=== PATIENT | male | born 1960 | race Caucasian/White ===

== ENCOUNTER → 2017-02-15 | Outpatient (CLI) | payer OTHER ==
[~2017-02-15] MED LIST: CYCL-259 PO; EMTR1TAB12 PO; GABA-826 PO; MELO-184 PO; METH750T87 PO; OMEP40CA6 PO; OXYC-96 PO; OXYC5CAP4 PO; OXYCODONE; PREG75CA PO; SUCR1TAB PO
== END ==
LOC: STAR 15:40
PROVIDERS: ATTEND Surgery
DX: Z02.9 Encounter for administrative examinations, unspecified (principal)

== ENCOUNTER 2019-08-09 03:52 | Emergency (ER) | payer BC, OTHER ==
[~2019-08-09] VITALS: Ht 182.9 cm; Wt 101.0 kg
[~2019-08-09 03:52] MED LIST changes: -EMTR1TAB12 PO; +EMTR1TAB8 PO; -MELO-184 PO; +MELO15TA24 PO; +OMEP40CA42 PO; -OMEP40CA6 PO; +OXYC-293 PO; -OXYC-96 PO; +OXYC5CAP2 PO; -OXYC5CAP4 PO
--- NOTE | 2019-08-09 04:10 | NUR ---
ERP TO BEDSIDE AWAITING ORDERS.
[2019-08-09] MEDS ORDERED: MORPHINE SULFATE 4 MG/ML, 1ML ONE ×2 (04:21→04:43)
[2019-08-09] MEDS ORDERED: ONDANSETRON 2MG/ML, 2ML ONE (04:21)
[2019-08-09 04:28] LABS: BASOPHILS # (AUTO) 0.02 x10^3/uL (0-0.1); BASOPHILS % (AUTO) 0 % (0-1); EOSINOPHILS # (AUTO) 0.11 x10^3/uL (0-0.4); EOSINOPHILS % (AUTO) 1 % (1-7); LYMPHOCYTES # (AUTO) 1.48 x10^3/uL (1-3.4); LYMPHOCYTES % (AUTO) 19 % (22-44); MD NO; MEAN CORPUSCULAR HEMOGLOBIN 31.6 pg (27.5-34.5); MEAN CORPUSCULAR VOLUME 95.6 fL (81-97); MEAN PLATELET VOLUME 7.1 fL (7.4-10.4); MONOCYTES # (AUTO) 0.31 x10^3/uL (0.2-0.8); MONOCYTES % (AUTO) 4 % (2-9); NEUTROPHILS % (AUTO) 75 % (42-75); PLATELET COUNT 206 x10^3/uL (130-400); RED BLOOD COUNT 5.44 x10^6/uL (4.38-5.82); RED CELL DISTRIBUTION WIDTH 13.4 % (9.4-14.8)
[2019-08-09] MEDS: MORPHINE SULFATE 4 MG/ML, 1ML IVPush PRN ×2 (04:28→05:01)
[2019-08-09] MEDS ORDERED: PANTOPRAZOLE 40 MG IV ONE (04:30)
[2019-08-09] MEDS ORDERED: SODIUM CHLORIDE 0.9% 1,000ML IVBOLUS ONE (04:30)
[2019-08-09] MEDS ORDERED: ONDANSETRON 2MG/ML, 2ML IVPush ONE (04:30)
[2019-08-09] MEDS ORDERED: PANTOPRAZOLE 40 MG IV IV ONE (04:30)
--- NOTE | 2019-08-09 04:33 | NUR ---
IV STARTED BLOOD TO LAB AND AWAITING CT SCAN PT MEDICATED FOR PAIN ORDERED. PT REPORTS SLIGHT RELIEF.
[2019-08-09 04:39] LABS: ALANINE AMINOTRANSFERASE 45 U/L (12-78); ALBUMIN 3.9 g/dL (3.4-5.0); ANION GAP 6 mmol/L (5-15); CALCIUM 9.2 mg/dL (8.5-10.1); CHLORIDE 108 mmol/L (98-107); CREATININE 1.11 mg/dL (0.7-1.3)
[2019-08-09 04:44] LABS: ALKALINE PHOSPHATASE 122 U/L (45-117); BILIRUBIN,TOTAL 0.4 mg/dL (0.2-1.0); TOTAL PROTEIN 8.5 g/dL (6.4-8.2); TROPONIN I < 0.015 ng/mL (0.000-0.045)
[2019-08-09] MEDS ORDERED: OMNIPAQUE 350 MG/ML, 100ML BOTTLE ONE (05:30)
[2019-08-09 05:32] VITALS: BP 132/77
--- NOTE | 2019-08-09 05:37 | NUR ---
PT AWAITING CT RESULTS AND UP TO BR STILL IN 5/10 PAIN.
== END 2019-08-09 06:22 | disposition home or self-care (01) ==
LOC: ED 05:27
DX: K29.00 Acute gastritis without bleeding (principal); R11.2 Nausea with vomiting, unspecified; R10.13 Epigastric pain
CPT/HCPCS: 36415; 71045; 74177; 80053; 83605; 83690; 84484; 85025; 93005; 96361; 96374; 96375; 96376; 99284; C9113; J2270; J2405; J7030; Q9967

== ENCOUNTER → 2019-09-25 | Outpatient (CLI) | payer BC | END | disposition home or self-care (01) | LOC: CFH 07:48 | PROVIDERS: ATTEND Physician Assistant | DX: K80.20 Calculus of gallbladder without cholecystitis without obstruction (principal); K76.0 Fatty (change of) liver, not elsewhere classified; K85.90 Acute pancreatitis without necrosis or infection, unspecified | CPT/HCPCS: 76705 ==